=== PATIENT | male | born 1965 | race Caucasian/White ===

== ENCOUNTER → 2020-06-13 10:49 | Outpatient (CLI) | payer OTHER, SELFPAY ==
--- NOTE | 2020-06-13 10:55 | RAD_ITS ---
STUDY: X-RAY - RIGHT ELBOW REASON FOR EXAM: Male, 55 years old. TROCHANTERIC BURSITIS TECHNIQUE: 3 view(s) of the elbow. COMPARISON: None. FINDINGS: Normal visualized humerus, radius and ulna. There is degenerative arthrosis of the radiocapitellar and ulnotrochlear articulations. Ossified densities adjacent to the medial and lateral elbow compatible with old injury. Olecranon enthesophyte is noted. There is also an enthesophyte at the biceps insertion of the proximal radius. The soft tissue structures are unremarkable. RAD/Elbow min 3 Views IMPRESSION: 1. No erosive changes. 2. Olecranon and proximal radial enthesophytes. 3. Old medial and lateral avulsion injuries. 4. Osteoarthrosis of the elbow. Electronically Signed: Antoni Jefferson MD ([place]) at 14:19 EST , Service support ,
== END ==
DX: M70.61 Trochanteric bursitis, right hip (principal)
CPT/HCPCS: 73080